=== PATIENT | female | born 1970 | race Caucasian/White ===

== ENCOUNTER 2022-01-12 22:25 | Outpatient (REF) | payer BC, SELFPAY ==
[2022-01-12 22:55] LABS: Basophils Absolute Auto 0.07 K/uL (0.00-0.30); Basophils Percent Auto 0.8 % (0.0-3.0); Eosinophils Absolute Auto 0.08 K/uL (0.00-0.50); Eosinophils Percent Auto 0.9 % (0.0-7.0); Hematocrit 39.7 % (33.0-51.0); Immature Granulocytes Abs Auto 0.04 K/uL (0.00-0.30); Lymphocytes Absolute Auto 2.32 K/uL (0.90-2.90); Lymphocytes Percent Auto 25.6 % (20-44); Mean Corpuscular HGB Conc 33 gm/dL (32-36); Mean Corpuscular Hemoglobin 29 pg (26-34); Mean Corpuscular Volume 90 fL (80-100); Monocytes Percent Auto 8.8 % (0.0-11.0); Neutrophils Absolute Auto 5.75 K/uL (1.7-7.0); Neutrophils Percent Auto 63.5 % (42.0-72.0); Platelet Count* 518 K/uL (140-440); RDW Coefficient of Variation % 13.8 % (11.5-15.5); Red Blood Count 4.42 m/uL (4.00-5.20); White Blood Count* 9.06 K/uL (4.50-11.00)
[2022-01-12 23:01] LABS: Cholesterol* 205 mg/dL (90-199); Glucose* 99 mg/dL (60-115); HDL Cholesterol* 57 mg/dL (>=50); LDL Cholesterol Calculated 128 mg/dL (<100); Triglycerides* 98 mg/dL (40-149)
[2022-01-12 23:03] LABS: Hemoglobin A1C* 4.72 % (0-5.6)
[2022-01-12 23:10] LABS: Slide Review Reflex No
== END 2022-01-12 22:26 | disposition home or self-care (01) ==
LOC: LAB 22:25
PROVIDERS: PCP Physician Assistant Medical
DX: Z79.899 Other long term (current) drug therapy (principal)
CPT/HCPCS: 36415; 80061; 82947; 83036; 85025

== ENCOUNTER 2022-02-16 14:37 | Outpatient (CLI) | payer BC, SELFPAY | END 2022-02-16 14:38 | disposition home or self-care (01) | LOC: LKVREF 02-25 10:34 | PROVIDERS: PCP Physician Assistant Medical; Visit Provider Nurse Practitioner Family | DX: R30.0 Dysuria (principal); N39.0 Urinary tract infection, site not specified | CPT/HCPCS: 87086; 87186 ==

== ENCOUNTER 2022-03-16 15:24 | Outpatient (CLI) | payer BC, SELFPAY | END 2022-03-16 15:25 | disposition home or self-care (01) | LOC: FRMREF 15:25 | PROVIDERS: PCP Physician Assistant Medical; Visit Provider Physician Assistant Medical | DX: Z01.419 Encounter for gynecological examination (general) (routine) without abnormal findings (principal); N30.00 Acute cystitis without hematuria; R10.2 Pelvic and perineal pain; R30.0 Dysuria | CPT/HCPCS: 87086; 87186 ==

== ENCOUNTER 2022-03-30 14:29 | Emergency (ER) | payer BC, SELFPAY ==
[2022-03-30 14:47] VITALS: BP 115/80; PULSE 80; RESP 16; TEMP 36.3; O2SAT 94; BMI 26.0
--- NOTE | 2022-03-30 17:02 | CRLHL7_ITS ---
For Patients: As a result of the Century Cures Act, medical imaging exams and procedure reports are released immediately into your electronic medical record. You may view this report before your referring provider. If you have questions, please contact your health care provider. INDICATION: SOB TECHNIQUE: Chest 2 views. COMPARISON: None. FINDINGS: Cardiovascular and mediastinum: Heart size and vasculature are normal in caliber and appearance. Mediastinum is within normal limits. Lungs and pleural spaces: Lungs are clear. No sign of infiltrate or mass. No sign of pleural effusion. No pneumothorax. Bones and soft tissues: No significant findings. IMPRESSION: Unremarkable chest. Dictated by: Tj Henning MD @ 03/30/2022 17:26:42 (Electronically Signed)
[2022-03-30 17:33] LABS: Basophils Absolute Auto 0.04 K/uL (0.00-0.30); Basophils Percent Auto 0.5 % (0.0-3.0); Eosinophils Absolute Auto 0.06 K/uL (0.00-0.50); Eosinophils Percent Auto 0.8 % (0.0-7.0); Hematocrit 38.1 % (33.0-51.0); Hemoglobin* 12.8 gm/dL (12.0-16.0); Immature Granulocytes Abs Auto 0.01 K/uL (0.00-0.30); Lymphocytes Absolute Auto 1.66 K/uL (0.90-2.90); Lymphocytes Percent Auto 22.2 % (20-44); Mean Corpuscular HGB Conc 34 gm/dL (32-36); Mean Corpuscular Hemoglobin 29 pg (26-34); Mean Corpuscular Volume 87 fL (80-100); Monocytes Percent Auto 7.4 % (0.0-11.0); Neutrophils Absolute Auto 5.15 K/uL (1.7-7.0); Platelet Count* 312 K/uL (140-440); RDW Coefficient of Variation % 12.9 % (11.5-15.5); White Blood Count* 7.47 K/uL (4.50-11.00)
[2022-03-30 17:40] LABS: Slide Review Reflex No
[2022-03-30] MEDS: ACETAMINOPHEN 500 MG TABLET 1000 MG PO (17:47)
--- NOTE | 2022-03-30 17:58 | ED_ITS ---
HPI - General Adult General Chief complaint: Chest Pain Stated complaint: Chest Pain Post Adams Procedure Time Seen by Provider: 03/30/22 14:41 Source: patient Mode of arrival: ambulatory Limitations: no limitations History of Present Illness HPI narrative: Patient is a 51-year-old female coming in today complaining of chest burning. She states that she had a Adams procedure on , that is 6 days ago, on t hat the chest burning started yesterday. She was told that there is a 2% chance of chest pain after the procedure. She states that the discomfort is constant. She states that she can not eat but it is uncomfortable when she swallows. She is not short of breath. She denies fevers or chills. She is not spitting up or vomiting. Again, she describes the discomfort as a burning sensation in the center of her chest. This burning sensation radiates around the right side of the chest. Related Data Home Medications Medication Instructions Recorded Confirmed asenapine maleate 10 mg sublingual ea sublingual 02/16/22 03/16/22 tablet famotidine 20 mg tablet 20 mg PO 02/16/22 03/16/22 lorazepam 0.5 mg tablet 0.5 mg PO 02/16/22 03/16/22 gabapentin 600 mg tablet 600 mg PO TID 03/16/22 03/16/22 Previous Rx's Medication Instructions Recorded omeprazole 40 mg capsule,delayed 40 mg PO BID #180 caps 03/16/22 release cephalexin 500 mg capsule 500 mg PO BID #10 caps 03/29/22 Allergies Allergy/AdvReac Type Severity Reaction Status Date / Time ciprofloxacin [From Cipro] Allergy Mild tachycardia Verified 03/29/22 12:25 Erythromycin Allergy Unknown Vomiting Uncoded 03/16/22 14:43 Review of Systems Status of ROS: Reports: 10 or more systems reviewed and unremarkable except as noted in History and below [facility] Medical History History of suicide attempt Surgical History History of endoscopy History of laparoscopic appendectomy Status post cholecystectomy Family History Father Anxiety disorder Depression Family/Other Breast cancer Social History Narrative: Does not drink alcohol Does not use illicit drugs Non-smoker Uses oral contraceptive as primary control method Smoking Status: Never smoker Exam Narrative: Exam Narrative: Well-nourished well-developed patient in no acute distress although she is very anxious. Alert and oriented. Answers questions appropriately. Patient speaks in full sentences without needing to catch her breath. She is speaking and breathing without difficulty. HEENT: Normocephalic atraumatic. Pupils are equally round reactive to light. Extraocular muscles are intact. Conjunctivae are moist without any icterus noted. Moist mucous membranes. Posterior pharynx is normal. Neck is soft without any lymphadenopathy or thyromegaly. No masses are appreciated. Cardiovascular: Heart is regular rate and rhythm S1 and S2 are present without any murmurs. Cannot reproduce her pain on palpation. Lungs: Clear to auscultation bilaterally no wheezes rhonchi or rales are appreciated. Patient takes deep breaths without any discomfort. Abdomen: Soft and nontender nondistended with normal bowel sounds. Skin: Well perfused without any obvious rashes. Const: Vital Signs, click to edit/add: Vital Signs - 24 hr 03/30/22 14:47 Temperature 97.4 F L Pulse Rate [Pulse Oximeter] 80 Respiratory Rate 16 Blood Pressure [Ri ght Upper Arm] 115/80 Pulse Oximetry 94 Oxygen Delivery Me thod Room Air Course Course Hospital Course: Patient's labs were unremarkable. EKG showed normal sinus rhythm with an incomplete right bundle-branch block. Chest x-ray showed no acute abnormalities, the probe from her pH monitor appears to be in the mid esophagus. I did personally speak to the radiologist who stated that the probe did not seem to be malpositioned. Patient did take some Tylenol while she was here and that seemed to help her symptoms. Vital Signs Vital signs: Initial Vital Signs Temperature 97.4 F L 03/30/22 14:47 Temperature Source Temporal Artery Scan 03/30/22 14:47 Pulse Rate 80 03/30/22 14:47 Pulse Rhythm 03/30/22 14:47 Respiratory Rate 16 03/30/22 14:47 Blood Pressure 115/80 03/30/22 14:47 Blood Pressure Mean 91 03/30/22 14:47 Blood Pressure Position Sitting 03/30/22 14:47 Pulse Oximetry 94 03/30/22 14:47 Oxygen Delivery Method 03/30/22 14:47 Vital Signs Temperature 97.4 F L 03/30/22 14:47 Pulse Rate 80 03/30/22 14:47 Respiratory Rate 16 03/30/22 14:47 Blood Pressure 115/80 03/30/22 14:47 Pulse Oximetry 94 03/30/22 14:47 Oxygen Delivery Method 03/30/22 14:47 Temperature 97.4 F L 03/30/22 14:47 Pulse Rate 80 03/30/22 14:47 Respiratory Rate 16 03/30/22 14:47 Blood Pressure 115/80 03/30/22 14:47 Pulse Oximetry 94 03/30/22 14:47 Oxygen Delivery Method 03/30/22 14:47 Medical Decision Making MDM Narrative Medical decision making narrative: 51-year-old female with chest pain status post a brought her procedure. The workup was unremarkable. Her pain is likely due to the pH probe. We discussed following up her GI physician for next steps. Patient was agreeable had no other questions. We did discuss other causes of chest pain including cardiac event, lung pathology such as pneumonia, pleurisy. we discussed costochondritis, gastritis. However given the timing of the procedure, the distribution and nature of her pain again, I do believe that likely her pain is due to the probe. Medical Records Medical records reviewed: Yes I reviewed the patient's medical records Lab Data Lab results reviewed: Yes I reviewed the patient's lab results Labs: Lab Results 03/30/22 03/30/22 03/30/22 Range/Units 17:25 17:25 17:25 WBC 7.47 (4.50-11.00) K/uL RBC 4.40 (4.00-5.20) m/uL Hgb 12.8 (12.0-16.0) gm/dL Hct 38.1 (33.0-51.0) % MCV 87 (80-100) fL MCH 29 (26-34) pg MCHC 34 (32-36) gm/dL RDW Coeff of [place] 12.9 (11.5-15.5) % Plt Count 312 (140-440) K/uL Neut % (Auto) 69.0 (42.0-72.0) % Lymph % (Auto) 22.2 (20-44) % [place] % (Auto) 7.4 (0.0-11.0) % Eos % (Auto) 0.8 (0.0-7.0) % Baso % (Auto) 0.5 (0.0-3.0) % Neut # (Auto) 5.15 (1.7-7.0) K/uL Lymph # (Auto) 1.66 (0.90-2.90) K/uL [place] # (Auto) 0.60 (0.00-0.90) K/UL Eos # (Auto) 0.06 (0.00-0.50) K/uL Baso # (Auto) 0.04 (0.00-0.30) K/uL Abs Immat Gran (auto) 0.01 (0.00-0.30) K/uL Imm/Tot Granulo (auto) Not Reportable Troponin I < 0.01 L (0.01-0.04) ng/mL C-Reactive Protein < 0.5 L (0.5-1.0) mg/dL Imaging Data Chest x-ray: Attestation: I have reviewed the pertinent imaging results. Radiologist's impression: Chest 2 views. COMPARISON: None. FINDINGS: Cardiovascular and mediastinum: Heart size and vasculature are normal in caliber and appearance. Mediastinum is within normal limits. Lungs and pleural spaces: Lungs are clear. No sign of infiltrate or mass. No sign of pleural effusion. No pneumothorax. Bones and soft tissues: No significant findings. IMPRESSION: Unremarkable chest. ECG Data Attestation: I personally reviewed and interpreted this ECG as follows: (Normal sinus rhythm, pulse 63, incomplete right bundle-branch block) Discharge Plan Discharge Clinical Impression: Esophageal pain, Chest pain Patient Disposition: Home, Self-Care Condition: Stable Additional Instructions: Follow-up with your team of physicians that performed your procedure to discuss next steps. Prescriptions: No Action asenapine maleate 10 mg tablet, sublingual sublingual famotidine 20 mg tablet 20 mg PO Label Comments: TAKE ONE TABLET BY MOUTH DAILY AT BEDTIME lorazepam 0.5 mg tablet 0.5 mg PO gabapentin 600 mg tablet 600 mg PO TID Label Comments: TAKE ONE TABLET BY MOUTH THREE TIMES DAILY omeprazole 40 mg capsule,delayed release(DR/EC) 40 mg PO BID Qty: 180 3RF cephalexin 500 mg capsule 500 mg PO BID Qty: 10 0RF Follow Up/Referrals: Mio Weems PA-C [Primary Care Provider] - Stand Alone Forms: LogMeIn Info Instructions
[2022-03-30 18:07] LABS: C Reactive Protein* < 0.5 mg/dL (0.5-1.0)
[2022-03-30 18:08] LABS: Troponin I* < 0.01 ng/mL (0.01-0.04)
[2022-03-30 18:15] VITALS: BP 124/87; PULSE 68; O2SAT 95
== END 2022-03-30 18:33 | disposition home or self-care (01) ==
PROVIDERS: Emergency Provider Family Medicine; PCP Physician Assistant Medical
DX: R07.89 Other chest pain (principal); G89.18 Other acute postprocedural pain; I45.19 Other right bundle-branch block; Z88.1 Allergy status to other antibiotic agents
CPT/HCPCS: 36415; 71046; 84484; 85025; 86140; 93005; 99284; 99285; A9270

== ENCOUNTER 2022-04-11 07:47 | Outpatient (CLI) | payer BC, SELFPAY | END 2022-04-11 07:48 | disposition home or self-care (01) | LOC: FRMREF 04-14 13:00 | PROVIDERS: PCP Physician Assistant Medical; Visit Provider Physician Assistant Medical | DX: R30.0 Dysuria (principal); N39.0 Urinary tract infection, site not specified | CPT/HCPCS: 87086 ==

== ENCOUNTER 2022-04-17 11:17 | Outpatient (CLI) | payer BC, SELFPAY | END 2022-04-17 11:18 | disposition home or self-care (01) | LOC: LKVREF 04-25 14:20 | PROVIDERS: PCP Physician Assistant Medical; Visit Provider Family Medicine | DX: R30.0 Dysuria (principal); N39.0 Urinary tract infection, site not specified | CPT/HCPCS: 87086 ==

== ENCOUNTER 2022-05-03 13:56 | Outpatient (CLI) | payer BC, SELFPAY | END 2022-05-03 13:57 | disposition home or self-care (01) | LOC: FRMREF 05-05 11:40 | PROVIDERS: PCP Physician Assistant Medical; Visit Provider Physician Assistant Medical | DX: N39.0 Urinary tract infection, site not specified (principal) | CPT/HCPCS: 87086 ==

== ENCOUNTER 2023-07-20 15:11 | Outpatient (CLI) | payer BC, SELFPAY | END 2023-07-20 15:12 | disposition home or self-care (01) | PROVIDERS: PCP Physician Assistant Medical; Referring Provider Physician Assistant Medical; Visit Provider Physician Assistant Medical | DX: Z13.220 Encounter for screening for lipoid disorders (principal); Z13.228 Encounter for screening for other metabolic disorders; Z13.29 Encounter for screening for other suspected endocrine disorder | CPT/HCPCS: 80053; 80061; 84443 ==

== ENCOUNTER 2023-08-01 14:21 | Outpatient (CLI) | payer BC, SELFPAY ==
--- NOTE | 2023-08-01 14:40 | MM_ITS ---
Patient: DALE REED Facility:?[facility] Patient ID:?[id number] Site Patient ID:?[id number]. Site :?[id number] Study:?XRay-Breast Bilateral 3D W/CAD-08/01/2023 2:56:06 PM Ordering Physician:Kayla Final Report: BILATERAL SCREENING MAMMOGRAM WITH COMPUTER-AIDED DETECTION AND TOMOSYNTHESIS TECHNIQUE: CC and MLO views were obtained. These mammographic images have been obtained using full-field digital technique. These mammographic images were interpreted with the benefit of computer-aided detection. Breast Tomosynthesis was used in this interpretation. COMPARISON FILM: 03/08/21, 11/20/18, 03/10/14. FINDINGS: There are scattered areas of fibroglandular density. IMPRESSION: There is no radiographic evidence for malignancy. ASSESSMENT: BI-RADS Category 2: Benign RECOMMENDATION: Routine screening mammogram in 1 year. A lay language report of this examination will be provided to the patient. Tj Hines M.D. Diagnostic Radiologist [email or web address] KE/sp R& Transcribed: 5:52 p.m. SP/Dictated by: Tj Hines MD @ 08/02/2023 1:23:00 PM Signed by:?Tj Hines MD @08/03/2023 5:40:58 AM (Electronic Signature)
== END 2023-08-01 14:22 | disposition home or self-care (01) ==
LOC: MAMMO 14:21
PROVIDERS: PCP Physician Assistant Medical; Visit Provider Physician Assistant Medical
DX: Z12.31 Encounter for screening mammogram for malignant neoplasm of breast (principal)
CPT/HCPCS: 77063; 77067

== ENCOUNTER 2023-12-27 12:55 | Outpatient (CLI) | payer BC, SELFPAY | END 2023-12-27 12:56 | disposition home or self-care (01) | LOC: NFLDREF 12-28 03:08 | PROVIDERS: PCP Physician Assistant Medical; Referring Provider Physician Assistant Medical; Visit Provider Physician Assistant Medical | DX: E78.5 Hyperlipidemia, unspecified (principal); I10 Essential (primary) hypertension; E78.2 Mixed hyperlipidemia | CPT/HCPCS: 80061 ==

== ENCOUNTER 2024-06-03 09:13 | Outpatient (CLI) | payer BC, SELFPAY | END 2024-06-03 09:14 | disposition home or self-care (01) | LOC: NFLDREF 09:15 | PROVIDERS: PCP Physician Assistant Medical; Visit Provider Physician Assistant Medical | DX: R82.90 Unspecified abnormal findings in urine (principal) | CPT/HCPCS: 87086 ==

== ENCOUNTER 2024-06-25 07:52 | Outpatient (CLI) | payer BC, SELFPAY ==
[2024-06-25 15:40] LABS: Chlamydia DNA Amplified* NOT DETECTED (No Detected); GC DNA Amplified* NOT DETECTED (No Detected)
[2024-06-30 03:03] LABS: HPV Source Cervix; HPV, High Risk by TMA Not Detected
== END 2024-06-25 07:53 | disposition home or self-care (01) ==
PROVIDERS: PCP Physician Assistant Medical; Visit Provider Physician Assistant Medical
DX: N39.0 Urinary tract infection, site not specified (principal); B96.1 Klebsiella pneumoniae [K. pneumoniae] as the cause of diseases classified elsewhere; Z11.3 Encounter for screening for infections with a predominantly sexual mode of transmission; Z11.51 Encounter for screening for human papillomavirus (HPV); Z12.4 Encounter for screening for malignant neoplasm of cervix
CPT/HCPCS: 87086; 87491; 87591; 87624; 87625; 88141; 88142

== ENCOUNTER 2024-06-28 07:17 | Outpatient (CLI) | payer BC, SELFPAY | END 2024-06-28 07:18 | disposition home or self-care (01) | LOC: NFLDREF 07-03 00:38 | PROVIDERS: PCP Physician Assistant Medical; Referring Provider Physician Assistant Medical; Visit Provider Nurse Practitioner Family | DX: R39.15 Urgency of urination (principal) | CPT/HCPCS: 87086 ==

== ENCOUNTER 2024-07-14 09:04 | Outpatient (CLI) | payer BC, SELFPAY | END 2024-07-14 09:05 | disposition home or self-care (01) | LOC: NFLDREF 07-17 06:10 | PROVIDERS: PCP Physician Assistant Medical; Referring Provider Physician Assistant Medical; Visit Provider Physician Assistant | DX: N30.01 Acute cystitis with hematuria (principal); B96.1 Klebsiella pneumoniae [K. pneumoniae] as the cause of diseases classified elsewhere | CPT/HCPCS: 87086 ==

== ENCOUNTER 2024-08-21 07:32 | Outpatient (CLI) | payer BC, SELFPAY ==
[2024-08-21 14:02] LABS: Hematocrit 39.2 % (33.0-51.0); Hemoglobin* 13.1 gm/dL (12.0-16.0); Mean Corpuscular HGB Conc 33 gm/dL (32-36); Mean Corpuscular Hemoglobin 31 pg (26-34); Mean Corpuscular Volume 91 fL (80-100); Platelet Count* 459 K/uL (140-440); White Blood Count* 6.08 K/uL (4.50-11.00)
[2024-08-21 15:07] LABS: Slide Review Reflex No
[2024-08-21 15:26] LABS: Albumin* 4.8 g/dL (3.3-5.0); Chloride* 103 mmol/L (96-114); Potassium* 4.4 mmol/L (3.6-5.1); Sodium* 139 mmol/L (135-149)
[2024-08-21 15:28] LABS: Blood Urea Nitrogen* 7 mg/dL (7-30); Creatinine* 0.7 mg/dL (0.5-1.5); Estimated Glomerular Filt Rate 103 ml/min; Hemoglobin A1C* < 4.0 % (0-5.6)
[2024-08-21 15:29] LABS: Alanine Aminotransferase* 52 U/L (4-35); Alkaline Phosphatase* 81 U/L (40-150); Anion Gap 13 mEq/L (7-15); Aspartate Amino Transferase* 52 U/L (12-35); Bilirubin Total* 0.5 mg/dL (0.1-1.5); Calcium* 9.8 mg/dL (8.4-10.6); Carbon Dioxide* 23 mmol/L (20-32); Cholesterol* 229 mg/dL (90-199); Glucose* 91 mg/dL (60-115); HDL Cholesterol* 46 mg/dL (>=50); LDL Cholesterol Calculated 94 mg/dL (<100); Total Protein* 7.7 g/dL (6.0-8.3)
[2024-08-21 15:40] LABS: Triglycerides* 445 mg/dL (40-149)
== END 2024-08-21 07:33 | disposition home or self-care (01) ==
LOC: NPINS 07:32
PROVIDERS: PCP Physician Assistant Medical; Visit Provider Nurse Practitioner Psychiatric/Mental Health
DX: Z79.899 Other long term (current) drug therapy (principal)
CPT/HCPCS: 80053; 80061; 83036; 85027

== ENCOUNTER 2024-10-18 07:13 | Outpatient (CLI) | payer BC, SELFPAY | END 2024-10-18 07:14 | disposition home or self-care (01) | LOC: NFLDREF 10-24 10:58 | PROVIDERS: PCP Physician Assistant Medical; Referring Provider Physician Assistant Medical | DX: N39.0 Urinary tract infection, site not specified (principal) | CPT/HCPCS: 87086 ==

== ENCOUNTER 2024-11-07 09:06 | Outpatient (CLI) | payer BC, SELFPAY ==
[2024-11-07 14:15] LABS: Albumin* 4.5 g/dL (3.3-5.0); Chloride* 99 mmol/L (96-114); Sodium* 137 mmol/L (135-149)
[2024-11-07 14:16] LABS: Potassium* 3.8 mmol/L (3.6-5.1)
[2024-11-07 14:18] LABS: Alanine Aminotransferase* 36 U/L (4-35); Alkaline Phosphatase* 76 U/L (40-150); Anion Gap 11 mEq/L (7-15); Aspartate Amino Transferase* 69 U/L (12-35); Bilirubin Total* 0.6 mg/dL (0.1-1.5); Blood Urea Nitrogen* 4 mg/dL (7-30); Carbon Dioxide* 27 mmol/L (20-32); Cholesterol* 212 mg/dL (90-199); Creatinine* 0.6 mg/dL (0.5-1.5); Estimated Glomerular Filt Rate 107 ml/min; Total Protein* 7.4 g/dL (6.0-8.3); Triglycerides* 257 mg/dL (40-149)
[2024-11-07 14:19] LABS: Calcium* 9.6 mg/dL (8.4-10.6); Glucose* 103 mg/dL (60-115); HDL Cholesterol* 53 mg/dL (>=50); LDL Cholesterol Calculated 108 mg/dL (<100)
[2024-11-07 14:21] LABS: Hematocrit 37.4 % (33.0-51.0); Hemoglobin* 12.2 gm/dL (12.0-16.0); Mean Corpuscular HGB Conc 33 gm/dL (32-36); Mean Corpuscular Hemoglobin 29 pg (26-34); Mean Corpuscular Volume 90 fL (80-100); Platelet Count* 387 K/uL (140-440); Red Blood Count 4.16 m/uL (4.00-5.20); White Blood Count* 8.56 K/uL (4.50-11.00)
[2024-11-07 14:25] LABS: Slide Review Reflex No
[2024-11-07 14:37] LABS: Hemoglobin A1C* 5.6 % (0-5.6)
== END 2024-11-07 09:07 | disposition home or self-care (01) ==
LOC: NPINS 09:09
PROVIDERS: PCP Physician Assistant Medical; Visit Provider Nurse Practitioner Psychiatric/Mental Health
DX: Z79.899 Other long term (current) drug therapy (principal); F31.30 Bipolar disorder, current episode depressed, mild or moderate severity, unspecified
CPT/HCPCS: 80053; 80061; 83036; 85027; 87086

== ENCOUNTER 2025-02-06 14:16 | Outpatient (CLI) | payer BC, SELFPAY ==
[2025-02-06 22:45] LABS: Bacterial Vaginosis* Negative (Negative); Candida glab/krus NOT DETECTED (No Detected)
== END 2025-02-06 14:17 | disposition home or self-care (01) ==
PROVIDERS: PCP Physician Assistant Medical; Visit Provider Registered Nurse
DX: R39.15 Urgency of urination (principal); N89.8 Other specified noninflammatory disorders of vagina
CPT/HCPCS: 81513; 87086; 87481; 87661

== ENCOUNTER 2025-02-19 14:43 | Outpatient (CLI) | payer BC, SELFPAY ==
--- NOTE | 2025-02-19 15:20 | CRLHL7_ITS ---
For Patients: As a result of the Century Cures Act, medical imaging exams and procedure reports are released immediately into your electronic medical record. You may view this report before your referring provider. If you have questions, please contact your health care provider. INDICATION: BILATERAL SCREENING MAMMOGRAM, ASYMPTOMATIC 54 Y/O FEMALE COMPARISON: 08/01/2023, 03/12/2021, 03/08/2021 TECHNIQUE: Digital mammogram in CC and MLO projections including computer-aided detection (CAD) and tomosynthesis. BREAST COMPOSITION: There are scattered areas of fibroglandular density. FINDINGS: No suspicious findings. ASSESSMENT: BI-RADS 1 Negative RECOMMENDATION: Annual screening mammogram. A lay language report of this examination will be provided to the patient. Dictated by: Daiana Kenney MD @ 02/20/2025 21:06:06 (Electronically Signed)
== END 2025-02-19 14:44 | disposition home or self-care (01) ==
LOC: MAMMO 14:44
PROVIDERS: PCP Physician Assistant Medical; Visit Provider Physician Assistant Medical
DX: Z12.31 Encounter for screening mammogram for malignant neoplasm of breast (principal)
CPT/HCPCS: 77063; 77067

== ENCOUNTER 2025-03-11 10:22 | Outpatient (CLI) | payer BC, SELFPAY | END 2025-03-11 10:23 | disposition home or self-care (01) | LOC: NFLDREF 03-27 23:13 | PROVIDERS: PCP Physician Assistant Medical; Referring Provider Physician Assistant Medical; Visit Provider Physician Assistant Medical | DX: N39.0 Urinary tract infection, site not specified (principal); M54.6 Pain in thoracic spine | CPT/HCPCS: 87086 ==

== ENCOUNTER 2025-05-02 07:19 | Outpatient (CLI) | payer BC, SELFPAY | END 2025-05-02 07:20 | disposition home or self-care (01) | LOC: NFLDREF 05-07 09:04 | PROVIDERS: PCP Physician Assistant Medical; Referring Provider Physician Assistant Medical | DX: N39.0 Urinary tract infection, site not specified (principal) | CPT/HCPCS: 87086 ==